=== PATIENT | male | born 1990 | race Caucasian/White ===

== ENCOUNTER 2024-01-20 07:44 | Outpatient (CLI) | payer OTHER, SELFPAY ==
--- NOTE | ~2024-01-20 | US_ITS ---
Limited Abdominal Sonogram: Real-time sonographic imaging of the right upper quadrant was performed. Clinical History: Elevated liver enzymes Findings: The liver appears mildly echogenic, with no evidence of mass lesion or bile duct dilatatio n. Main portal vein demonstrates normal direction of flow. The gallbladder is well distended, and dem onstrates a small gallstone. The common bile duct measures 3 mm. The visualized pancreas, aorta, and IVC are unremarkable. Right kidney measures 10.9 cm in length, without hydronephrosis. Impression: Probable diffuse fatty infiltration of the liver Cholelithiasis. Reviewed, dictated and finalized at location M. Impression: Probable diffuse fatty infiltration of the liver Cholelithiasis.
== END 2024-01-20 07:45 ==
LOC: MICIMG 07:45
PROVIDERS: PCP Nurse Practitioner Family; Visit Provider Nurse Practitioner Family
DX: R74.8 Abnormal levels of other serum enzymes (principal); K80.20 Calculus of gallbladder without cholecystitis without obstruction
CPT/HCPCS: 76705